=== PATIENT | female | born 1970 | race Caucasian/White ===

== ENCOUNTER 2022-12-13 14:53 | Emergency (ER) | payer OTHER, BC | END 2022-12-13 17:15 | disposition home or self-care (01) | LOC: MADERS 14:53 | DX: S52.121A Displaced fracture of head of right radius, initial encounter for closed fracture (principal); E03.9 Hypothyroidism, unspecified; W01.0XXA Fall on same level from slipping, tripping and stumbling without subsequent striking against object, initial encounter | CPT/HCPCS: 24650 ==